=== PATIENT | female | born 1955 | race Caucasian/White ===

== ENCOUNTER 2016-10-09 16:37 | Inpatient (IN) | payer OTHER ==
--- NOTE | 2016-10-09 16:31 | US ---
Venous Doppler Study of right Lower Extremity Clinical Indications: Left leg swelling for 5 days. Technique: High-frequency transducer was used for imaging and Doppler study of the deep veins of the leg from the upper calf to the groin. Pulsed Doppler and color Doppler were utilized, along with va rious maneuvers, to assess flow in the deep veins. Findings: The deep veins of the groin, thigh, knee, and upper calf are well displayed and are noncom pressible without evidence of internal color flow Doppler enhancement compatible with extensive DVT. There also appears be thrombus associated with the greater saphenous vein in the thigh to the knee. Impression: 1. Evidence of DVT from the left distal external iliac vein through the calf as well as superficial t hrombus of the greater saphenous vein. These findings were discussed by telephone with Dr. Geraldo Macedo at 1628 hours.
--- NOTE | 2016-10-09 16:44 | EDPHY ---
H & P Time Seen by Provider: 10/09/16 16:43 HPI/ROS: Portions of this note were transcribed by a medical staff services manager. I personally performed the history, physical exam, and medical decision-making; and confirmed the accuracy of the information in the transcribed note. CHIEF COMPLAINT: Left leg pain, DVT confirmed on US HISTORY OF PRESENT ILLNESS: This patient is a 61 year old female who was referred to the Emergency Department by Dr. Macedo following an US of her lower left extremity indicating DVT. She has a history of one prior DVT in the mid- following an injury to her left leg and she was treated with Heparin in the hospital and 6 month course of Coumadin at that time. She has not had any recurrent blood clots since that time. Today, she describes her pain as diffuse to her left leg extending from her groin to her left calf. Her pain first presented on Saturday and associated with diffuse erythema to her LLE. She denies any additional pain, shortness of breath, fever, or other complaints. No additional pertinent medical history. REVIEW OF SYSTEMS: Eye: no change in vision ENT: no sore throat Cardiac: no chest pain or syncope Pulmonary: no cough or SOB Abdomen: no vomiting, diarrhea, abdominal pain Musculoskeletal: As above. Also: Left ankle swollen since February, ingrown toenail removed at that time. Intermittent swelling to left ankle since that time. Skin: no rash Neuro: no headache Constitutional: no fever : no urinary symptoms PAST MEDICAL HISTORY: One prior DVT in mid-. Previous venous procedure by Dr. Buchanan. Results of LLE Doppler Extremity Venous Ultrasound ordered by Dr. Macedo reviewed and indicate evidence of DVT from the left distal external iliac vein through the calf as well as superficial thrombus of the greater saphenous vein. Social history: at bedside. Non-smoker. Family history: Blood clots in mother. General Appearance: Alert and conversant, cooperative. Eyes: No scleral icterus. ENT, Mouth: Normal mucous membranes. Respiratory: Normal respiratory effort, breath sounds equal, lungs are clear to auscultation. Speaks in full sentences. Cardiovascular: Regular rate and rhythm. There is a pulse present in the left foot. Gastrointestinal: Abdomen is soft and non tender. Neurological: Alert and oriented x3. Normally conversant. Face symmetric, normal movement and sensation in all extremities. Skin: Slightly warm and red left leg. No blisters or crepitus. Musculoskeletal: Significant left leg swelling as compared to the right. Redness to the anterior dent. Compartments are soft, but significant swelling exists. Psychiatric: Not agitated. Emergency Department course/MDM: I discussed ultrasound results with the patient. Given the severity of the patient's swelling, plan to discuss results with Dr. Buchanan, interventional radiologist, to consider interventional radiology removal of DVT. Will proceed with labs to investigate kidney function. 1658: I discussed US results with Dr. Nathan Islas, radiologist. 1707: Dr. Lizy Buchanan, IR, will visit the patient in the Emergency Department. 1800: Per Dr. Buchanan from IR there are no ICU beds available tonight, plan for inpatient admission on IV heparin, interventional radiology as soon as ICU bed becomes available. The heparin bolus and drip started in the emergency department. Constitutional: Initial Vital Signs Temperature (C) 37.1 C 10/09/16 16:40 Heart Rate 106 H 10/09/16 16:40 Respiratory Rate 16 10/09/16 16:40 Blood Pressure 113/96 H 10/09/16 16:40 O2 Sat (%) 94 10/09/16 16:40 O2 Delivery Mode Room Air Allergies/Adverse Reactions: erythromycin base [Erythromycin Base] Allergy (Unknown, Verified 08/16/10 11:07) DISORIENTED/DYSFUNCTIONAL Home Medications: Medication Instructions Recorded Aspirin EC [Aspirin EC 81 mg (*)] 81 mg PO DAILY@20 10/09/16 Cholecalciferol Vit D3 [Vitamin D3 2,000 units PO DAILY@20 10/09/16 (*)] Levothyroxine [Synthroid 88 mcg 88 mcg PO DAILY06 10/09/16 (*)] [place]-3 Fatty Acids [Fish Oil 1000 1,000 mg PO DAILY 10/09/16 mg (*)] Omeprazole [Prilosec 20 mg] 20 mg PO DAILY@10/09/16 Vitamin E 200 unit PO DAILY@10/09/16 Medical Decision Making Differential Diagnosis: Differential considered including but not limited to DVT, arterial occlusion, cellulitis, compartment syndrome Consult/Admit Bed Type: Dr. Buchanan in ED at 1749, saw pt; [place] [id number] Critical Care Time: Critical care time spent by me, Dr. Law, exclusively with the care of this patient was [30] minutes, exclusive of PA or [employer] time and exclusive of separate procedures. The organ system at risk was vascular and I ordered IV heparin, consultation with interventional radiologist and hospitalist physician, to stabilize the patient and prevent worsening of the patient's condition. - Data Points Laboratory Results: Laboratory Results 10/09/16 17:14 16 17:14 10/09/16 17:14 WBC 10.00 H 10^3/uL (3.80-9.50) RBC 4.54 10^6/uL (4.18-5.33) Hgb 13.3 g/dL (12.6-16.3) Hct 39.8 % (38.0-47.0) MCV 87.7 fL (81.5-99.8) MCH 29.3 pg (27.9-34.1) MCHC 33.4 g/dL (32.4-36.7) RDW 14.0 % (11.5-15.2) Plt Count 135 L 10^3/uL (150-400) MPV 9.5 fL (8.7-11.7) Neut % (Auto) 69.7 % (39.3-74.2) Lymph % (Auto) 17.1 % (15.0-45.0) [place] % (Auto) 8.0 % (4.5-13.0) Eos % (Auto) 4.2 % (0.6-7.6) Baso % (Auto) 0.5 % (0.3-1.7) Nucleat RBC Rel Count 0.0 % (0.0-0.2) Absolute Neuts (auto) 6.97 H 10^3/uL (1.70-6.50) Absolute Lymphs (auto) 1.71 10^3/uL (1.00-3.00) Absolute Monos (auto) 0.80 10^3/uL (0.30-0.80) Absolute Eos (auto) 0.42 H 10^3/uL (0.03-0.40) Absolute Basos (auto) 0.05 10^3/uL (0.02-0.10) Absolute Nucleated RBC 0.00 10^3/uL (0-0.01) Immature Gran % 0.5 % (0.0-1.1) Immature Gran # 0.05 10^3/uL (0.00-0.10) PT 13.3 SEC (12.0-15.0) INR 1.02 (0.83-1.16) APTT 26.5 SEC (23.0-38.0) Sodium 143 mEq/L (134-144) Potassium 4.2 mEq/L (3.5-5.2) Chloride 109 mEq/L (97-110) Carbon Dioxide 25 mEq/l (22-31) Anion Gap 9 mEq/L (8-16) BUN 17 mg/dL (7-23) Creatinine 0.8 mg/dL (0.6-1.0) Estimated GFR > 60 Glucose 111 H mg/dL (70-100) Calcium 9.4 mg/dL (8.5-10.4) Medications Given: Discontinued Medications Heparin Sodium (Porcine) (Heparin Injection) 0 unit IVP EDNOW ONE PRN Reason: Protocol Stop: 10/09/16 17:59 Last Admin: 10/09/16 18:19 Dose: 6,200 units Heparin Sodium (Porcine) (Heparin 50 Units/Ml (Premix)) 500 mls @ 0 mls/hr IV EDNOW ONE; Per Protocol PRN Reason: Protocol Stop: 10/09/16 17:59 Last Admin: 10/09/16 18:19 Dose: 500 mls Departure - Departure Disposition: [facility] Acute Clinical Impression: DVT (deep venous thrombosis) Qualifiers: DVT location: lower extremity Affected thrombotic vein of extremity: iliac Laterality: left Chronicity: acute Qualifier Code: (I82.422) Acute embolism and thrombosis of left iliac vein Condition: Good Report Scribed for: Dean Law Report Scribed by: Kenna Sears Date of Report: 10/09/16 Time of Report: 17:03
[2016-10-09 17:30] LABS: % IMMATURE GRANULYOCYTES 0.5 % (0.0-1.1); ABSOLUTE IMMATURE GRANULOCYTES 0.05 10^3/uL (0.00-0.10); ADD DIFF? NO; ADD MORPH? NO; ADD SCAN? NO; ATYPICAL LYMPHOCYTE FLAG 0 (0-99); FRAGMENT RBC FLAG 0 (0-99); HEMATOCRIT 39.8 % (38.0-47.0); HEMOGLOBIN 13.3 g/dL (12.6-16.3); LEFT SHIFT FLG 0 (0-99); LIPEMIA HEMOLYSIS FLAG 80 (0-99); MEAN CELL HEMOGLOBIN 29.3 pg (27.9-34.1); MEAN CELL HEMOGLOBIN CONCENTR. 33.4 g/dL (32.4-36.7); MEAN CELL VOLUME 87.7 fL (81.5-99.8); MEAN PLATELET VOLUME 9.5 fL (8.7-11.7); PLATELET CLUMPS FLAG 10 (0-99); PLATELET COUNT 135 10^3/uL (150-400); RED BLOOD CELL COUNT 4.54 10^6/uL (4.18-5.33)
[2016-10-09 17:34] LABS: INR 1.02 (0.83-1.16); PROTIME(PATIENT) 13.3 SEC (12.0-15.0)
[2016-10-09 17:35] LABS: APTT 26.5 SEC (23.0-38.0)
[2016-10-09 17:40] LABS: ANION GAP 9 mEq/L (8-16); CALCIUM 9.4 mg/dL (8.5-10.4); CARBON DIOXIDE 25 mEq/l (22-31); CHLORIDE 109 mEq/L (97-110); CREATININE 0.8 mg/dL (0.6-1.0); GLOMERULAR FILTRATION RATE > 60; GLUCOSE 111 mg/dL (70-100); POTASSIUM 4.2 mEq/L (3.5-5.2); SODIUM 143 mEq/L (134-144)
[2016-10-09] MEDS ORDERED: HEPARIN/DEXTROSE 500 ML IV ONE (17:58)
[2016-10-09] MEDS ORDERED: HEPARIN 10,000 UNIT/10 ML MDV IVP ONE (17:58)
[2016-10-09] MEDS ORDERED: ONDANSETRON DISINTEGRATING 4 MG TAB PO PRN (19:25)
[2016-10-09] MEDS ORDERED: PROMETHAZINE HCL 25 MG/ML VIAL IVP PRN (19:25)
[2016-10-09] MEDS ORDERED: ONDANSETRON 4 MG/2 ML VIAL IVP PRN (19:25)
[2016-10-09] MEDS ORDERED: LORazepam 0.5 MG TAB PO PRN (19:25)
[2016-10-09] MEDS ORDERED: HEPARIN 10,000 UNIT/10 ML MDV IVP PRN (19:27)
[2016-10-09] MEDS ORDERED: HEPARIN/DEXTROSE 500 ML IV SCH (19:30)
--- NOTE | 2016-10-09 22:33 | PDGENHP ---
History and Physical - Chief Complaint left leg swellind and pain - History of Present Illness 61 yo F with PMH of HLD and DVT presenting with swelling and pain in her left lower extremity that has been present for about 4 days. She has a hx of prior DVT in that leg many years ago and was treated with 6 months of AC. At this time her leg is noted to be very tight and red and swollen and she has been evaluated by Dr. Buchanan in the ER who felt that she should be treated with lysis with concerns that her current venous stasis cellulitis would likely worsen and that she would be high risk for ulceration in that area. Currently patient notes that the pain is actually fairly minimal so long as she has the leg elevated. She has no associated chest pain or shortness of breath etc. History Information - Allergies/Home Medication List Allergies/Adverse Reactions: erythromycin base [Erythromycin Base] Allergy (Unknown, Verified 08/16/10 11:07) DISORIENTED/DYSFUNCTIONAL Home Medications: Aspirin EC [Aspirin EC 81 mg (*)] 81 mg PO DAILY@10/09/16 [Last Taken ] Cholecalciferol Vit D3 [Vitamin D3 (*)] 2,000 units PO DAILY@10/09/16 [Last Taken 10/08/16] Levothyroxine [Synthroid 88 mcg (*)] 88 mcg PO DAILY06 10/09/16 [Last Taken ] [place]-3 Fatty Acids [Fish Oil 1000 mg (*)] 1,000 mg PO DAILY 10/09/16 [Last Taken 10/08/16] Omeprazole [Prilosec 20 mg] 20 mg PO DAILY@10/09/16 [Last Taken 10/08/16] Vitamin E 200 unit PO DAILY@10/09/16 [Last Taken 10/08/16] I have personally reviewed and updated: family history, medical history, social history, surgical history - Past Medical History DVT, hyperlipidemia Additional medical history: hypothryoid. thyroid nodule - Surgical History Reports: hysterectomy Additional surgical history: tonsillectomy. tubal ligation. venous ablatoin - Family History Positive for: non-pertinent - Social History Smoking Status: Never smoked Alcohol Use: Rarely Drug Use: None Additional social history: 3 children all grown Review of Systems ROS: 10pt was reviewed & negative except for what was stated in HPI & below Physical Exam Temp Pulse Resp BP Pulse Ox 37.5 C 103 H 18 164/86 H 95 10/09/16 19:15 10/09/16 19:15 10/09/16 19:15 10/09/16 19:15 10/09/16 19:15 Constitutional: no apparent distress, appears nourished, obese Eyes: PERRL Ears, Nose, Mouth, Throat: moist mucous membranes, hearing normal Cardiovascular: regular rate and rhythym, no murmur, rub, or gallop Respiratory: no respiratory distress, no rales or rhonchi Gastrointestinal: normoactive bowel sounds, soft, non-tender abdomen Skin: warm, erythema, induration Musculoskeletal: asymmetric calves, muscular tenderness Neurologic: AAOx3 Psychiatric: interacting appropriately, not anxious, not encephalopathic Lab Data & Imaging Review 10/09/16 17:14 10/09/16 17:14 WBC 10.00 10^3/uL (3.80-9.50) H 10/09/16 17:14 RBC 4.54 10^6/uL (4.18-5.33) 10/09/16 17:14 Hgb 13.3 g/dL (12.6-16.3) 10/09/16 17:14 Hct 39.8 % (38.0-47.0) 10/09/16 17:14 MCV 87.7 fL (81.5-99.8) 10/09/16 17:14 MCH 29.3 pg (27.9-34.1) 10/09/16 17:14 MCHC 33.4 g/dL (32.4-36.7) 10/09/16 17:14 RDW 14.0 % (11.5-15.2) 10/09/16 17:14 Plt Count 135 10^3/uL (150-400) L 10/09/16 17:14 MPV 9.5 fL (8.7-11.7) 10/09/16 17:14 Neut % (Auto) 69.7 % (39.3-74.2) 10/09/16 17:14 Lymph % (Auto) 17.1 % (15.0-45.0) 10/09/16 17:14 [place] % (Auto) 8.0 % (4.5-13.0) 10/09/16 17:14 Eos % (Auto) 4.2 % (0.6-7.6) 10/09/16 17:14 Baso % (Auto) 0.5 % (0.3-1.7) 10/09/16 17:14 Nucleat RBC Rel Count 0.0 % (0.0-0.2) 10/09/16 17:14 Absolute Neuts (auto) 6.97 10^3/uL (1.70-6.50) H 10/09/16 17:14 Absolute Lymphs (auto) 1.71 10^3/uL (1.00-3.00) 10/09/16 17:14 Absolute Monos (auto) 0.80 10^3/uL (0.30-0.80) 10/09/16 17:14 Absolute Eos (auto) 0.42 10^3/uL (0.03-0.40) H 10/09/16 17:14 Absolute Basos (auto) 0.05 10^3/uL (0.02-0.10) 10/09/16 17:14 Absolute Nucleated RBC 0.00 10^3/uL (0-0.01) 10/09/16 17:14 Immature Gran % 0.5 % (0.0-1.1) 10/09/16 17:14 Immature Gran # 0.05 10^3/uL (0.00-0.10) 10/09/16 17:14 PT 13.3 SEC (12.0-15.0) 10/09/16 17:14 INR 1.02 (0.83-1.16) 10/09/16 17:14 APTT 26.5 SEC (23.0-38.0) 10/09/16 17:14 Sodium 143 mEq/L (134-144) 10/09/16 17:14 Potassium 4.2 mEq/L (3.5-5.2) 10/09/16 17:14 Chloride 109 mEq/L (97-110) 10/09/16 17:14 Carbon Dioxide 25 mEq/l (22-31) 10/09/16 17:14 Anion Gap 9 mEq/L (8-16) 10/09/16 17:14 BUN 17 mg/dL (7-23) 10/09/16 17:14 Creatinine 0.8 mg/dL (0.6-1.0) 10/09/16 17:14 Estimated GFR > 60 10/09/16 17:14 Glucose 111 mg/dL (70-100) H 10/09/16 17:14 Calcium 9.4 mg/dL (8.5-10.4) 10/09/16 17:14 Visualized and Interpreted imaging results: Yes Interpretation: dvt from distal left external iliac through the calf Assessment & Plan Assessment: DVT (deep venous thrombosis) (Acute) 61 yo F with 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 High risk for complications associated with venous stasis and venous stasis dermatitis so plan is for lysis in am. IR involved, reviewed care plan with Dr. Buchanan. Heparin gtt tonight, tpa in am and transfer to ICU at that time for monitoring. # venous stasis dermatitis: without e/o cellulitis really at this point, tx as above, elevation, monitoring # hld: recently taken off of statins by her pcp, continue f/u # hypothyroid: continue lt4 # dispo: IP status, high risk given need for TPA Patient new to my care. old records reviewed and summarized as above. Care plan reviewed with Dr. Buchanan.
[2016-10-09] MEDS: oxyCODONE IR 5 MG TAB PO PRN (23:02)
[2016-10-09] MEDS: NS 1,000 ML IV SCH (23:45)
[2016-10-10] MEDS: HYDROmorphONE/DILAUDID 1 MG/ML SYR IVP PRN ×2 (03:10→18:03)
[2016-10-10] MEDS: oxyCODONE IR 5 MG TAB PO PRN ×2 (03:10→21:57)
[2016-10-10] MEDS: LEVOTHYROXINE 88 MCG TAB PO SCH (05:30)
[2016-10-10 06:04] LABS: % IMMATURE GRANULYOCYTES 0.4 % (0.0-1.1); ABSOLUTE IMMATURE GRANULOCYTES 0.04 10^3/uL (0.00-0.10); ADD DIFF? NO; ADD MORPH? NO; ADD SCAN? NO; ATYPICAL LYMPHOCYTE FLAG 0 (0-99); FRAGMENT RBC FLAG 0 (0-99); HEMATOCRIT 37.1 % (38.0-47.0); HEMOGLOBIN 12.1 g/dL (12.6-16.3); LEFT SHIFT FLG 0 (0-99); LIPEMIA HEMOLYSIS FLAG 80 (0-99); MEAN CELL HEMOGLOBIN CONCENTR. 32.6 g/dL (32.4-36.7); MEAN PLATELET VOLUME 9.7 fL (8.7-11.7); PLATELET CLUMPS FLAG 30 (0-99); PLATELET COUNT 134 10^3/uL (150-400); RED BLOOD CELL COUNT 4.17 10^6/uL (4.18-5.33); RED CELL DISTRIBUTION WIDTH 14.1 % (11.5-15.2)
[2016-10-10 06:47] LABS: ANION GAP 8 mEq/L (8-16); CALCIUM 8.6 mg/dL (8.5-10.4); CARBON DIOXIDE 23 mEq/l (22-31); CHLORIDE 109 mEq/L (97-110); CREATININE 0.7 mg/dL (0.6-1.0); GLOMERULAR FILTRATION RATE > 60; GLUCOSE 122 mg/dL (70-100); POTASSIUM 3.9 mEq/L (3.5-5.2); SODIUM 140 mEq/L (134-144)
[2016-10-10] MEDS: OMEGA-3 FATTY ACIDS 1,000 MG CAP PO SCH (09:32)
--- NOTE | 2016-10-10 14:18 | HOSPPROG ---
Hospitalist Progress Note Assessment/Plan: 61 yo F with recurrent dvt in left leg, extensive, with likely underlying May- thurner syndrome an history of factor 5 Leiden mutation per patient # extensive left lower extremity dvt - continue heparin drip - plan for interventional radiology thrombolysis later today # venous stasis dermatitis - tx as above, elevation, monitoring # hyperlipidemia -recently taken off of statins by her pcp, continue f/u # hypothyroid: continue lt4 # dispo: IP status, high risk given need for TPA Patient new to my care. old records reviewed and summarized as above. Care plan reviewed with Dr. Buchanan. Subjective: denies chest pain or shortness of breath. Left leg continues to be swollen. No fevers or chills Objective: Vital Signs Temp Pulse Resp BP Pulse Ox 37.1 C 105 H 18 152/96 H 95 10/10/16 11:59 10/10/16 11:59 10/10/16 11:59 10/10/16 11:59 10/10/16 11:59 Laboratory Results 10/10/16 05:50 10/10/16 05:50 10/09/16 10/10/16 10/11/16 05:59 05:59 05:59 Intake Total 919 Balance 919 PT 13.3 SEC (12.0-15.0) 10/09/16 17:14 INR 1.02 (0.83-1.16) 10/09/16 17:14 - Physical Exam Constitutional: no apparent distress, appears nourished, not in pain Ears, Nose, Mouth, Throat: moist mucous membranes, hearing normal, ears appear normal, no oral mucosal ulcers Cardiovascular: regular rate and rhythym, no murmur, rub, or gallop Respiratory: no respiratory distress, no rales or rhonchi, clear to auscultation Musculoskeletal: other ( left ankle and lower leg her edematous without pitting edema other signs of stasis dermatitis) ICD10 Worksheet Patient Problems: Problems Problem Status Diagnosed DVT (deep venous thrombosis) Acute
[2016-10-10] MEDS ORDERED: fentaNYL 100 MCG/2 ML INJ ONE ×2 (15:37→16:24)
[2016-10-10] MEDS ORDERED: MIDAZOLAM 2 MG/2 ML VIAL ONE (15:37)
[2016-10-10] MEDS ORDERED: IOPAMIDOL (ISOVUE-300) 100 ML BTL IV ONE (16:26)
[2016-10-10] MEDS ORDERED: ALTEPLASE 5 MG in NS 100 ML IVP ONE (16:30)
[2016-10-10] MEDS ORDERED: HEPARIN/DEXTROSE 500 ML IV SCH (17:00)
--- NOTE | 2016-10-10 19:30 | IR ---
Left lower extremity venogram TPA lysis Indication: Extensive left lower extremity DVT. Patient had varicose veins treated in 2009 with sub sequent resolution of varicose vein related issues and swelling. Three years ago, the patient started an area of cellulitis at the anterior dent in the left lower leg. This has been growing. She present ed to the Emergency Department last night with acute onset of severe left lower extremity swelling. U ltrasound confirms extensive left lower extremity DVT. My suspicion is that the patient has May-Thurner syndrome, with continued ongoing compression of the iliac vein, now causing complete thrombosis. Meanwhile over the course of the last 7 years, she has b een accumulating venous hypertension from the deep system, thereby now developing anterior dent venou s stasis cellulitis. The above were all discussed with the patient, who understood the implications of post thrombophlebit ic syndrome in her particular case. I think the patient has a very high risk of developing ulceration at the current area of cellulitis from venous hypertension if the existing clot is not treated aggre ssively. Patient was heparinized overnight with intention for lysis today. Her leg is significantly tense. Informed consent: Obtained from the patient. Risks and benefits were discussed. Crosscutting Measure: Patient's current list of medications including all known prescriptions, over- the-counters, herbals, and vitamin/mineral/dietary supplements are reviewed. Medications' name, dosa ge, frequency, and route of administration are confirmed. patient is a non-smoker. Prophylactic Antibiotic: Cefazolin was not ordered and administered for antimicrobial prophylaxis be cause it was not medically necessary. VTE Prophylaxis: There is not an order for VTE prophylaxis to be given within 24 hours of the proced ure end time. VTE prophylaxis was not given because it was not medically necessary. Technique: Patient was placed in prone position. A "timeout" procedure was performed to identify th e correct patient and the correct procedure. 1% Xylocaine was used for local anesthetic. All eleme nts of maximal sterile barrier technique including cap, mask, sterile gown, sterile gloves, large guillermo rile sheet, hand hygiene, and 2% chlorhexidine for cutaneous antisepsis, followed. Ultrasound evaluation of potential access site was performed. After successfully identifying a patent vessel, ultrasound guidance was used to puncture the vessel. A permanent recording was created for t he patient's record. When ultrasound is used, sterile gel and probe covers are used. It was very difficult to access the popliteal vein at the popliteal fossa because of body habitus and degree of tissue density from the swelling and clotting. I essentially used deflection of the needle to access the popliteal vein without direct visualization of the needle tip. I was able to get into the popliteal vein, with rapid return of blood that is from collaterals. [place] wire advanced readily. This was followed by Micropuncture sheath. Venogram performed shows intra luminal access of the popliteal vein and a large amount of fresh clot in the popliteal vein and SFV. Glidewire and [place] catheter access for the remainder of the SFV, common femoral vein, and subsequent iliac veins were obtained. Continued venogram was performed, showing thrombosis of the entire segmen t of these veins. Venogram performed centrally shows paraspinal collaterals, and no direct in-line flow to IVC. 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 Using the [place] catheter and the Glidewire, I was able to access the small residual lumen, subsequently placing the combination into t he IVC. Contrast injection confirms satisfactory placement of the catheter in the IVC. Intraluminal access was confirmed by multiple venograms, and multiple readjustments of the wire and c atheter combination. [place] power jet thrombectomy was first performed throughout the entire segment from the IVC down to the popliteal access. This was done to remove some volume in her venous system given the amount of te nseness of her tissue. I was concerned that with overnight dripping of TPA, that the patient will be at risk of phlegmasia cerulea dolens syndrome. After mechanical thrombectomy, 50 cm EKOS infusion catheter was advanced, and subsequently attached t o TPA. Medication: 2.5 mg Versed, 150 mcg fentanyl, 1540 to 1645 hours. Fluoroscopy: 8.1 minutes, 18 images Impression: 1. May-Thurner syndrome with complete closure of the iliac vein proximally. 2. Extensive acute DVT throughout the left lower leg. 3. The patch of erythema at the anterior dent in the lower leg that has been progressing over the las t several years most likely represents venous stasis cellulitis from ongoing deep system venous hyper tension. Plan: 1. Overnight TPA lysis. 2. Anticipate stent placement tomorrow.
[2016-10-10] MEDS: PANTOPRAZOLE SODIUM 40 MG TAB PO SCH (19:45)
[2016-10-10] MEDS: LORazepam 1 MG TAB PO PRN (19:45)
[2016-10-10] MEDS: CHOLECALCIFEROL VIT D3 2,000 UNITS TAB/CAP PO SCH (19:45)
[2016-10-10] MEDS: VITAMIN E 200 UNIT PO SCH (19:45)
[2016-10-10] MEDS: ACETAMINOPHEN 325 MG TAB PO PRN (19:50)
[2016-10-10] MEDS: NS 1,000 ML IV SCH (20:46)
[2016-10-10] MEDS: ALTEPLASE 5 MG in NS 100 ML IV SCH (20:47)
[2016-10-11] MEDS: oxyCODONE IR 5 MG TAB PO PRN ×3 (01:16→23:15)
[2016-10-11 05:01] LABS: % IMMATURE GRANULYOCYTES 0.4 % (0.0-1.1); ABSOLUTE IMMATURE GRANULOCYTES 0.04 10^3/uL (0.00-0.10); ADD DIFF? NO; ADD MORPH? NO; ADD SCAN? NO; ATYPICAL LYMPHOCYTE FLAG 10 (0-99); FRAGMENT RBC FLAG 0 (0-99); HEMATOCRIT 34.4 % (38.0-47.0); LEFT SHIFT FLG 0 (0-99); LIPEMIA HEMOLYSIS FLAG 80 (0-99); MEAN CELL HEMOGLOBIN 28.6 pg (27.9-34.1); MEAN CELL VOLUME 89.4 fL (81.5-99.8); MEAN PLATELET VOLUME 9.8 fL (8.7-11.7); PLATELET CLUMPS FLAG 0 (0-99); PLATELET COUNT 137 10^3/uL (150-400); RED BLOOD CELL COUNT 3.85 10^6/uL (4.18-5.33); RED CELL DISTRIBUTION WIDTH 13.8 % (11.5-15.2)
[2016-10-11] MEDS: ALTEPLASE 5 MG in NS 100 ML IV SCH ×3 (05:09→20:11)
[2016-10-11 05:18] LABS: APTT 27.7 SEC (23.0-38.0)
[2016-10-11] MEDS: LEVOTHYROXINE 88 MCG TAB PO SCH (06:09)
[2016-10-11] MEDS: NS 1,000 ML IV SCH (06:43)
[2016-10-11] MEDS: OMEGA-3 FATTY ACIDS 1,000 MG CAP PO SCH (09:20)
--- NOTE | 2016-10-11 09:27 | HOSPPROG ---
Hospitalist Progress Note Assessment/Plan: #Extensive LLE DVT -s/p t-pA and stent placement -family to discuss coumadin vs. newer agent -given underlying May-Thurner and prior clot, needs lifelong anticoagulation #Venous stasis dermatitis -no e/o acute cellulitis -elevate #Acute leg pain: controlled #Hypothyroidism -LT4 #Diet: regular #DVT px: on heparin #Disp: warrants inpt admission with large clot burden, IV heparin Subjective: pain in left leg controlled Objective: Vital Signs Temp Pulse Resp BP Pulse Ox 37 C 108 H 24 H 135/66 H 92 10/11/16 07:56 10/11/16 07:56 10/11/16 07:56 10/11/16 07:56 10/11/16 07:56 Laboratory Results 10/11/16 04:44 10/10/16 05:50 10/10/16 10/11/16 10/12/16 05:59 05:59 05:59 Intake Total 919 1901.3 Output Total 625 Balance 919 1276.3 PT 13.3 SEC (12.0-15.0) 10/09/16 17:14 INR 1.02 (0.83-1.16) 10/09/16 17:14 - Physical Exam Constitutional: obese, uncomfortable Eyes: PERRL, anicteric sclera Ears, Nose, Mouth, Throat: moist mucous membranes, hearing normal Cardiovascular: regular rate and rhythym, no murmur, rub, or gallop Respiratory: no respiratory distress, no rales or rhonchi Gastrointestinal: normoactive bowel sounds, soft, non-tender abdomen Genitourinary: no bladder fullness, no bladder tenderness Skin: warm, other Musculoskeletal: other (left leg with very significant swelling. TTP) ICD10 Worksheet Patient Problems: Problems Problem Status Diagnosed DVT (deep venous thrombosis) Acute
[2016-10-11 10:34] LABS: HEMATOCRIT 34.2 % (38.0-47.0); HEMOGLOBIN 11.3 g/dL (12.6-16.3); MEAN CELL HEMOGLOBIN 29.4 pg (27.9-34.1); MEAN CELL VOLUME 88.8 fL (81.5-99.8); RED BLOOD CELL COUNT 3.85 10^6/uL (4.18-5.33)
[2016-10-11] MEDS ORDERED: MIDAZOLAM 2 MG/2 ML VIAL ONE ×2 (10:51→11:53)
[2016-10-11] MEDS ORDERED: fentaNYL 100 MCG/2 ML INJ ONE ×2 (10:52→11:53)
[2016-10-11] MEDS ORDERED: IOPAMIDOL (ISOVUE-300) 100 ML BTL IV ONE (11:38)
--- NOTE | 2016-10-11 14:18 | GCON ---
[f rep st] CONSULTATION CRITICAL CARE CONSULTATION DATE OF CONSULTATION: 10/11/2016 REFERRING PHYSICIAN: Leonel Bill MD CHIEF COMPLAINT: Left leg pain and swelling. HISTORY OF PRESENT ILLNESS: This 61-year-old female had about a 4-day history of left lower extremit y pain and swelling prior to coming into the hospital. She was diagnosed with a very large volume DV T and has had interventional radiology with Dr. Buchanan, and topical lysis with tPA. The redness of the skin is better and the swelling is slightly better, but still quite prominent. The leg feels tight t o the patient. 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 She has not had any chest pain or shortness of breath. Significantly, the patient h ad a DVT in her left lower extremity many years ago after an injury playing baseball. She was treate d with Coumadin for approximately 6 months at that point. Also, the patient has heterozygous factor 5 Leiden deficiency. PAST MEDICAL HISTORY: 1. DVT as noted above with May-Thurner syndrome. 2. Hyperlipidemia. 3. Factor 5 Leiden heterozygous. 4. Corrected hypothyroidism. SURGICAL HISTORY: Hysterectomy, tonsillectomy, tubal ligation, and venous ablation. FAMILY HISTORY: Without diabetes mellitus or early arteriosclerotic vascular disease. SOCIAL HISTORY: She has never smoked tobacco or used illicit drugs, and rarely drinks alcohol. She lives with her and has 3 grown children. Her sister has heterozygous factor 5 Leiden, as tanner starks. Their mother had quite a few blood clots. REVIEW OF SYSTEMS: Otherwise noncontributory, except as included above x10 points. PHYSICAL EXAMINATION: GENERAL: The patient is comfortable. VITAL SIGNS: Blood pressure 141/73, pu lse 102, respiratory rate of 20, oxygen saturation 97% on 2 L, and she is afebrile. SKIN: Normal. HEAD: Without evidence of trauma. EYES: PERRL. External ocular movements full. Fundi not visualiz ed. EARS: Canals clear. NOSE: Without septal deviation or polyps. MOUTH AND PHARYNX: Clear with out lesions. NECK: Supple without adenopathy. No jugular venous distention. CHEST: Decreased scarlet ath sounds, but no rales, wheezes, rhonchi, or rubs. HEART: PMI is not palpable. S1 and S2 are nor mal. There is no S3, S4, or murmur. ABDOMEN: Obese without organomegaly or masses. There is no te nderness and bowel sounds are present. EXTREMITIES: Full range of motion of the arms and right leg without clubbing, cyanosis, or edema. The left lower extremity is quite edematous. There is no real erythema present. It is not really tender at this point. DATA REVIEWED: The ultrasound of the leg showed extensive deep vein thrombosis and venogram showed M ay-Thurner syndrome with near-complete closure of the iliac vein proximally. A stent has been placed in the iliac vein. The white blood count is 10,560 with a hematocrit of 34. Chemistry is normal. IMPRESSION: 1. Extensive deep venous thrombosis of the left lower extremity and this is her second episode, stat us post stent placement and tissue plasmogen activator lysis. 2. May-Thurner syndrome of the left iliac vein. 3. Heterozygous factor 5 Leiden. PLAN: I spent considerable time talking to the patient and her about the options of Coumadin versus 1 of the newer anticoagulants. I believe they will choose a newer agent. I have also spent time saying that they need to be very careful while she is on anticoagulation as far as falling and h itting her head, or having other bleeding. I believe this patient, with her previous history of a DV T and May-Thurner syndrome with a stent, should be on lifelong anticoagulation. /[id number]/MODL
[2016-10-11 17:54] LABS: APTT 153.1 SEC (23.0-38.0)
[2016-10-11 18:21] LABS: APTT 70.6 SEC (23.0-38.0)
[2016-10-11] MEDS: VITAMIN E 200 UNIT PO SCH (20:48)
[2016-10-11] MEDS: CHOLECALCIFEROL VIT D3 2,000 UNITS TAB/CAP PO SCH (20:53)
[2016-10-11] MEDS: PANTOPRAZOLE SODIUM 40 MG TAB PO SCH (20:53)
--- NOTE | 2016-10-11 22:46 | IR ---
Lysis Follow-up Venography Iliac Vein Angioplasty Common Iliac Vein Stent Placement Indication: May-Thurner syndrome. Post 24-hour TPA lysis. The patient's fibrinogen actually went u p. PTT has been below 30. The patient has tolerated the overall bedridden status fairly well. Informed Consent: Obtained from the patient. Risks and benefits were discussed. Cross Cutting Measure: Patient's current list of medications including all known prescriptions, over -the-counters, herbals, and vitamin/mineral/dietary supplements are reviewed. Medications' name, dos age, frequency, and route of administration are confirmed. Patient is a non-smoker. Prophylactic Antibiotic: Cefazolin was not ordered and administered for antimicrobial prophylaxis be cause it was not medically necessary. VTE Prophylaxis: There is not an order for VTE prophylaxis to be given within 24 hours of the proced ure end time. VTE prophylaxis was not given because it was not medically necessary. Technique: Patient is placed in prone position. A "timeout" procedure was performed to identify the correct patient and the correct procedure. 1% Xylocaine was used for local anesthetic. All element s of maximal sterile barrier technique, including cap, mask, sterile gown, sterile gloves, large ster ile sheet, hand hygiene, and 2% chlorhexidine for cutaneous antisepsis, followed. Popliteal access site is anesthetized. Amplatz wire is used to remove the infusion catheter. Venogr am is performed, showing a good amount of clot removed from the femoral vein and the superficial femo ral vein, however, with significant irregularity and clot remaining in the external iliac and common iliac segment. It is unclear at what point the catheter is subintimal. The short vascular sheath is exchanged for a 55-cm long vascular sheath, 8-Luxembourgish. It is positioned at the common femoral vein. Power injection venogram shows collateral flow, and delineates true lume n into the IVC. This lumen was then accessed using a combination of Glidecatheter and Amplatz wire. Angioplasty is p erformed along the external iliac and common femoral segments. A 14-mm diameter x 60-mm length LifeStent was loaded, and deployed at the junction of the IVC and the left common iliac vein. The proximal markers of the stent immediately flared out, confirming that t he stent traverses across the May-Thurner stenosis. Distally, it also flared out, with the mid segme nt going through high stricture. Angioplasty within the stent is performed using a 14-mm balloon. Post stent deployment venogram show s continued clot in the stented segment, and also extending into the IVC. Nonetheless, there is bett er antegrade flow. There continues to be irregularity in the external iliac segment. Decision was then made to continue TPA. 40-cm EKOS infusion catheter was loaded, distally terminatin g at distal thigh, proximally terminating above the stent in the IVC. Both the sidearm of the sheath as well as the infusion catheter are attached to 0.5 mg/hr of TPA. 30 0 units of heparin per hour is administered via peripheral IV. The patient tolerated the procedure w ell. Fluoroscopy: 13.2 minutes, 22 images. Medication: 2 mg Versed, 100 mcg fentanyl, 1105 to 1158. Impressions 1. Good clearance of clot in the femoral and common femoral vein segments. 2. Irregularity and chronic stricture at the external iliac vein and common iliac vein, consistent w ith May-Thurner syndrome. 3. A 14- x 60-mm self-expanding stent deployed at the common iliac vein, repairing May-Thurner physi ology. 4. Angioplasty performed at the external and common femoral veins to facilitate dissolution of clot. Plan: Continued TPA lysis overnight. Additional stent extension into the external iliac vein may be needed tomorrow.
[2016-10-11 23:53] LABS: APTT 56.9 SEC (23.0-38.0)
[2016-10-12] MEDS: NS 1,000 ML IV SCH (03:26)
[2016-10-12 04:51] LABS: HEMATOCRIT 31.9 % (38.0-47.0); HEMOGLOBIN 10.7 g/dL (12.6-16.3); MEAN CELL HEMOGLOBIN 29.6 pg (27.9-34.1); MEAN CELL HEMOGLOBIN CONCENTR. 33.5 g/dL (32.4-36.7); MEAN CELL VOLUME 88.1 fL (81.5-99.8); RED BLOOD CELL COUNT 3.62 10^6/uL (4.18-5.33)
[2016-10-12 05:03] LABS: APTT 43.4 SEC (23.0-38.0)
[2016-10-12 05:04] LABS: ANION GAP 3 mEq/L (8-16); CALCIUM 7.1 mg/dL (8.5-10.4); CARBON DIOXIDE 27 mEq/l (22-31); CHLORIDE 109 mEq/L (97-110); CREATININE 0.8 mg/dL (0.6-1.0); GLOMERULAR FILTRATION RATE > 60; GLUCOSE 111 mg/dL (70-100); POTASSIUM 3.2 mEq/L (3.5-5.2); SODIUM 139 mEq/L (134-144)
[2016-10-12] MEDS: LEVOTHYROXINE 88 MCG TAB PO SCH (07:07)
[2016-10-12] MEDS ORDERED: POTASSIUM CL 20 MEQ TAB PO ONE (08:24)
--- NOTE | 2016-10-12 08:25 | HOSPPROG ---
Hospitalist Progress Note Assessment/Plan: #Extensive LLE DVT -s/p t-pA and stent placement -family to discuss coumadin vs. newer agent -given underlying May-Thurner and prior clot, needs lifelong anticoagulation -she has agreed to Pradaxa BID. 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 #Venous stasis dermatitis -no e/o acute cellulitis -elevate #Acute leg pain: controlled #Hypothyroidism -LT4 #Diet: regular #DVT px: Pradaxa #Disp: warrants inpt admission with large clot burden, Pradaxa, PT Subjective: leg feels less tense Objective: Vital Signs Temp Pulse Resp BP Pulse Ox 36.5 C 97 18 137/62 H 92 10/12/16 07:54 10/12/16 07:54 10/12/16 07:54 10/12/16 07:54 10/12/16 07:54 Laboratory Results 10/12/16 04:30 10/12/16 04:30 10/11/16 10/12/16 10/13/16 05:59 05:59 05:59 Intake Total 1901.3 4054 Output Total 625 1400 Balance 1276.3 2654 PT 13.3 SEC (12.0-15.0) 10/09/16 17:14 INR 1.02 (0.83-1.16) 10/09/16 17:14 - Physical Exam Constitutional: no apparent distress Eyes: PERRL Ears, Nose, Mouth, Throat: moist mucous membranes Cardiovascular: regular rate and rhythym Respiratory: no respiratory distress, reduced air movement Genitourinary: no bladder fullness Skin: warm, other (dermatitis skin changes LEs, no signs of ) Musculoskeletal: other (left leg with significant swelling still, but less tense ) ICD10 Worksheet Patient Problems: Problems Problem Status Diagnosed DVT (deep venous thrombosis) Acute
[2016-10-12] MEDS ORDERED: fentaNYL 100 MCG/2 ML INJ ONE ×2 (08:44→09:25)
[2016-10-12] MEDS ORDERED: MIDAZOLAM 2 MG/2 ML VIAL ONE (08:45)
[2016-10-12] MEDS ORDERED: LIDOCAINE 1% 30 ML SDV ONE (09:53)
[2016-10-12] MEDS ORDERED: IOPAMIDOL (ISOVUE-300) 100 ML BTL IV ONE (09:53)
[2016-10-12] MEDS ORDERED: HEPARIN 10,000 UNIT/10 ML MDV IVP PRN (09:54)
[2016-10-12] MEDS: OMEGA-3 FATTY ACIDS 1,000 MG CAP PO SCH (10:05)
[2016-10-12 10:25] LABS: % IMMATURE GRANULYOCYTES 0.7 % (0.0-1.1); ABSOLUTE IMMATURE GRANULOCYTES 0.08 10^3/uL (0.00-0.10); ADD DIFF? NO; ADD MORPH? NO; ADD SCAN? NO; ATYPICAL LYMPHOCYTE FLAG 10 (0-99); FRAGMENT RBC FLAG 0 (0-99); HEMATOCRIT 33.8 % (38.0-47.0); HEMOGLOBIN 11.1 g/dL (12.6-16.3); LEFT SHIFT FLG 0 (0-99); LIPEMIA HEMOLYSIS FLAG 80 (0-99); MEAN CELL HEMOGLOBIN 28.8 pg (27.9-34.1); MEAN CELL HEMOGLOBIN CONCENTR. 32.8 g/dL (32.4-36.7); MEAN CELL VOLUME 87.8 fL (81.5-99.8); MEAN PLATELET VOLUME 10.1 fL (8.7-11.7); PLATELET CLUMPS FLAG 0 (0-99); PLATELET COUNT 76 10^3/uL (150-400); RED BLOOD CELL COUNT 3.85 10^6/uL (4.18-5.33); RED CELL DISTRIBUTION WIDTH 14.1 % (11.5-15.2)
[2016-10-12 10:33] LABS: APTT 37.6 SEC (23.0-38.0); INR 1.45 (0.83-1.16); PROTIME(PATIENT) 17.6 SEC (12.0-15.0)
[2016-10-12] MEDS ORDERED: HEPARIN/DEXTROSE 500 ML IV SCH (12:00)
[2016-10-12] MEDS ORDERED: POTASSIUM CL 20 MEQ TAB ONE (12:09)
[2016-10-12] MEDS: DABIGATRAN ETEXILATE MESYL 150 MG CAP PO SCH ×2 (12:10→19:57)
--- NOTE | 2016-10-12 13:35 | PDINTPN ---
Emt I/85 Progress Note Assessment/Plan: Assessment: #DVT, second episode. 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 Elevation of the leg will help some, and eventually she may need compression stockings. 10/12/16 13:35 Subjective: Some left leg pain Objective: Vital Signs Temp Pulse Resp BP Pulse Ox 36.3 C 98 22 H 153/60 H 98 10/12/16 12:00 10/12/16 12:36 10/12/16 12:36 10/12/16 12:36 10/12/16 12:36 Laboratory Results 10/12/16 10:00 10/12/16 04:30 10/11/16 10/12/16 10/13/16 05:59 05:59 05:59 Intake Total 1901.3 4054 Output Total 625 1400 Balance 1276.3 2654 PT 17.6 SEC (12.0-15.0) H 10/12/16 10:00 INR 1.45 (0.83-1.16) H 10/12/16 10:00 Physical Exam - Physical Exam General Appearance: alert, mild distress EENT: normal ENT inspection Neck: non-tender Respiratory: chest non-tender, lungs clear Cardiac/Chest: regular rate, rhythm Abdomen: normal bowel sounds, soft Back: Normal inspection Skin: warm/dry Lymphatic: no adenopathy Extremities: non-tender, pedal edema (significant edema of the entire LLE) Neuro/Psych: alert, oriented x 3 ICD10 Worksheet Patient Problems: Problems Problem Status Diagnosed DVT (deep venous thrombosis) Acute
--- NOTE | 2016-10-12 16:14 | IR ---
Lysis Follow Up Venography Angioplasty of the Common Femoral and External Iliac Veins Stent of the External Iliac Vein Indication: Post additional 8 hours of TPA lysis. TPA and heparin were stopped at 8 p.m. last night because of low fibrinogen level. Informed Consent: Obtained from the patient. Risks and benefits were discussed. Cross Cutting Measure: Patient's current list of medications including all known prescriptions, over -the-counter medications, herbals, and vitamin/mineral/dietary supplements are reviewed. Medications ' name, dosage, frequency, and route of administration are confirmed. Patient is a non-smoker. Prophylactic Antibiotic: Cefazolin was not ordered and administered for antimicrobial prophylaxis be cause it was not medically necessary. VTE Prophylaxis: There is not an order for VTE prophylaxis to be given within 24 hours of the proced ure end time. VTE prophylaxis was not given because it was not medically necessary. Technique: Patient is placed in prone position. A "timeout" procedure was performed to identify the correct patient and the correct procedure. 1% Xylocaine was used for local anesthetic. All elemen ts of maximal sterile barrier technique including cap, mask, sterile gown, sterile gloves, large ster ile sheet, hand hygiene, and 2% chlorhexidine for cutaneous antisepsis, followed. Again, infusion catheter is removed over exchange length Amplatz wire. Venography is performed throug h the sidearm of the sheath, this time showing a widely patent SFV and common femoral vein. The short sheath is exchanged for a long, 70 cm 8-Mozambican sheath, positioned into the common femoral v ein. Outflow venography was performed, showing patent stent, and essentially 95% clot free lysis. There is continued irregularity and narrowing of the external iliac vein segment. Angioplasty is firs t performed using 10 mm x 40 mm balloon. There is some resolution of the stenosis at the external nelson ac segment postangioplasty. However, below this stent of the common iliac vein, there continues to be an area of irregularity that may be prone to restenosis. A 6 cm long x 12 mm diameter self-expanding Life stent was loaded, and deployed distally above the in guinal ligament. This left a small gap between the common iliac stent and the external iliac stent. T his gap is bridged by a 14 mm diameter x 40 mm length stent. Post stent placement tack down angioplasty was performed, using a 14 mm balloon. Final post angioplas ty venogram shows rapid antegrade runoff, reflux of flow into the contralateral iliac vein, and rapid clearance of any injected contrast. Medication: 1 mg Versed, 100 mcg fentanyl, 0906 to 0935. Fluoroscopy: 5.6 minutes, 14 images. Impressions 1. Complete clot lysis. 2. Extension of stent, with stents now in the common iliac and external iliac veins. 3. Widely patent common femoral and superficial femoral veins. 4. Still slow inflow because the calf vessels are still occluded. Recommendations 1. Aggressive systemic anticoagulation. This is most important in the next several days to prevent re thrombosis. 2. Consider lifelong anticoagulation because of patient's hypercoagulable state, despite repair of un derlying anatomic source. 3. As soon as bleeding risk is eliminated within the next several hours, ambulation is highly recomme nded to start the rerouting process in the calf. 4. Application of medical grade compression stocking at least knee height is also highly recommended. The above are discussed with the patient and her , who expressed understanding of the informat ion discussed. I am overall very pleased with the normal appearance of the reconstructed veins and of the overall lysis, considering that we had no flow whatsoever to speak off at the start of the case.
[2016-10-12] MEDS: PANTOPRAZOLE SODIUM 40 MG TAB PO SCH (19:57)
[2016-10-12] MEDS: CHOLECALCIFEROL VIT D3 2,000 UNITS TAB/CAP PO SCH (19:57)
[2016-10-12] MEDS: VITAMIN E 200 UNIT PO SCH (19:58)
[2016-10-12] MEDS: LORazepam 1 MG TAB PO PRN (22:56)
[2016-10-13 02:11] LABS: HEMATOCRIT 30.9 % (38.0-47.0); HEMOGLOBIN 10.3 g/dL (12.6-16.3); MEAN CELL HEMOGLOBIN 28.8 pg (27.9-34.1); MEAN CELL HEMOGLOBIN CONCENTR. 33.3 g/dL (32.4-36.7); MEAN CELL VOLUME 86.3 fL (81.5-99.8); RED BLOOD CELL COUNT 3.58 10^6/uL (4.18-5.33); RED CELL DISTRIBUTION WIDTH 13.8 % (11.5-15.2)
[2016-10-13 02:28] LABS: ANION GAP 7 mEq/L (8-16); CALCIUM 7.4 mg/dL (8.5-10.4); CARBON DIOXIDE 23 mEq/l (22-31); CHLORIDE 107 mEq/L (97-110); CREATININE 0.6 mg/dL (0.6-1.0); GLOMERULAR FILTRATION RATE > 60; GLUCOSE 107 mg/dL (70-100); POTASSIUM 2.9 mEq/L (3.5-5.2); SODIUM 137 mEq/L (134-144)
[2016-10-13] MEDS ORDERED: hydrALAZINE 20 MG/ML VIAL IVP PRN ×2 (02:44→02:47)
[2016-10-13] MEDS ORDERED: hydrALAZINE 20 MG/ML VIAL ONE (02:52)
[2016-10-13] MEDS: LEVOTHYROXINE 88 MCG TAB PO SCH (05:21)
[2016-10-13] MEDS: oxyCODONE IR 5 MG TAB PO PRN ×2 (05:21→22:46)
[2016-10-13] MEDS ORDERED: POTASSIUM CL 20 MEQ TAB ONE (07:06)
[2016-10-13] MEDS ORDERED: PROTOCOL POTASSIUM 1 DOSE MISC PRN (08:48)
[2016-10-13] MEDS: ACETAMINOPHEN 325 MG TAB PO PRN (11:06)
[2016-10-13] MEDS: OMEGA-3 FATTY ACIDS 1,000 MG CAP PO SCH (11:07)
[2016-10-13] MEDS: DABIGATRAN ETEXILATE MESYL 150 MG CAP PO SCH ×2 (11:07→21:11)
[2016-10-13] MEDS ORDERED: ZOLPIDEM TARTRATE 5 MG TAB PO PRN (11:14)
[2016-10-13 12:44] LABS: COLOR YELLOW; LEUKOCYTE ESTERASE,URINE 3+ (NEGATIVE); NITRITE,URINE NEGATIVE (NEGATIVE)
[2016-10-13 12:58] LABS: BACTERIA 1+ /hpf (NONE SEEN); WBC,URINE 50-182 /hpf (0-3)
--- NOTE | 2016-10-13 14:56 | HOSPPROG ---
Hospitalist Progress Note Assessment/Plan: #Extensive LLE DVT -s/p t-pA and stent placement to common/external iliacs -family to discuss coumadin vs. newer agent -given underlying May-Thurner and prior clot, needs lifelong anticoagulation, Pradaxa BID -high risk for post-phlebitic syndrome: leg elevation and berny hose #Venous stasis dermatitis -no e/o acute cellulitis -elevate #Acute leg pain: controlled #Hypothyroidism -LT4 #Thrombocytopenia 76-->86. No e/o bleeding #Normocytic anemia -H/H stable. CBC in morning #Diet: regular #DVT px: Pradaxa #Disp: warrants inpt admission with large clot burden, Pradaxa, PT. Transfer to med surg Subjective: headache this morning. pain 12/21 Objective: Vital Signs Temp Pulse Resp BP Pulse Ox 36.6 C 93 18 146/75 H 91 L 10/13/16 13:33 10/13/16 13:33 10/13/16 13:33 10/13/16 13:33 10/13/16 13:33 Laboratory Results 10/13/16 02:00 10/13/16 02:00 10/12/16 10/13/16 10/14/16 05:59 05:59 05:59 Intake Total 4054 750 740 Output Total 1400 2560 450 Balance 2654 -1810 290 PT 17.6 SEC (12.0-15.0) H 10/12/16 10:00 INR 1.45 (0.83-1.16) H 10/12/16 10:00 - Physical Exam Constitutional: obese Eyes: PERRL Ears, Nose, Mouth, Throat: moist mucous membranes, hearing normal Cardiovascular: regular rate and rhythym, no murmur, rub, or gallop, tachycardia Respiratory: no respiratory distress, no rales or rhonchi Gastrointestinal: normoactive bowel sounds, soft, non-tender abdomen Genitourinary: no bladder fullness Skin: warm Musculoskeletal: other (left leg with significant swelling, less tense) Neurologic: AAOx3, CN II-XII Intact Psychiatric: interacting appropriately ICD10 Worksheet Patient Problems: Problems Problem Status Diagnosed DVT (deep venous thrombosis) Acute
[2016-10-13 18:49] LABS: POTASSIUM 3.2 mEq/L (3.5-5.2)
[2016-10-13] MEDS ORDERED: POTASSIUM CL 10 MEQ TAB PO ONE (19:23)
[2016-10-13] MEDS: PANTOPRAZOLE SODIUM 40 MG TAB PO SCH (21:11)
[2016-10-13] MEDS: CHOLECALCIFEROL VIT D3 2,000 UNITS TAB/CAP PO SCH (21:11)
[2016-10-13] MEDS: VITAMIN E 200 UNIT PO SCH (21:44)
[2016-10-14 04:51] LABS: HEMATOCRIT 32.3 % (38.0-47.0); HEMOGLOBIN 10.9 g/dL (12.6-16.3); MEAN CELL HEMOGLOBIN CONCENTR. 33.7 g/dL (32.4-36.7); MEAN CELL VOLUME 85.9 fL (81.5-99.8); RED BLOOD CELL COUNT 3.76 10^6/uL (4.18-5.33)
[2016-10-14 05:32] LABS: POTASSIUM 3.5 mEq/L (3.5-5.2)
[2016-10-14] MEDS: LEVOTHYROXINE 88 MCG TAB PO SCH (06:23)
[2016-10-14] MEDS ORDERED: POTASSIUM CL 10 MEQ TAB PO ONE ×2 (07:44→20:26)
[2016-10-14] MEDS: OMEGA-3 FATTY ACIDS 1,000 MG CAP PO SCH (09:27)
[2016-10-14] MEDS: DABIGATRAN ETEXILATE MESYL 150 MG CAP PO SCH (09:27)
[2016-10-14] MEDS: ACETAMINOPHEN 325 MG TAB PO PRN (09:39)
[2016-10-14] MEDS: oxyCODONE IR 5 MG TAB PO PRN (09:40)
[2016-10-14] MEDS ORDERED: NITROFURANTOIN MACROBID 100 MG CAP PO SCH (10:00)
[2016-10-14] MEDS ORDERED: IOPAMIDOL (ISOVUE 370) 100 ML BTL IV ONE (12:06)
--- NOTE | 2016-10-14 13:41 | CT ---
Contrast-Enhanced CT Scan of the Chest (CT Pulmonary Artery Angiography) Clinical History: 61-year-old female inpatient with a history of a deep venous thrombosis, and exter nal iliac stent placement and IR-mediated clot lysis, now complaining of shortness of breath. Rule ou t PE. Technique: A timing bolus was used. The patient received 90 mL of IV Isovue-370 without complication, and a multidetector helical CT scan was obtained from the base the neck inferiorly to the upper abdo men, with images reformatted at 1.50 and 4/3-mm increments, and reviewed at a variety of window and l evel settings. Multiplanar reconstructions were reviewed on the workstation. The DFOV is 36.8 cm. Dos e reduction protocol was used. Comparison Study: CT HeartScan, dated September 05, 2007. Findings: CT Angiography: There is a hypodense filling defect seen within the superior lingular and the superi or segment left lower lobe pulmonary artery branches (please reference series 5, images 95 through 11 2). The main pulmonary arteries and the main right and main left pulmonary arteries are contrast-opac ified, and normal in size. There is no saddle embolus. There is no interventricular septal bowing, no r is there any reflux into the intrahepatic IVC. The heart size is normal. The thoracic aortic contou r is normal. There is no pericardial effusion. There is a normal anatomic arrangement of the great ve ssels off of the aortic arch. The descending thoracic aorta and the upper abdominal aorta appear norm al. Contrast-Enhanced CT Scan of the chest: Moderate right and small left pleural effusions are seen wit h areas of bilateral lower lobe compressive subsegmental atelectasis versus minimal infiltrates. Ther e is some mild peribronchial thickening and there may also be some pulmonary venous congestion (query fluid overload). There is no adenopathy. The thyroid gland is diminutive. There is mild mediastinal lipomatosis. There is some subtle areas of opacification of the gallbladder, on series 7, image 100, and sonography could be considered for further evaluation, as clinically directed. Moderate centripe stas and subcutaneous obesity are present. The osseous structures are age-appropriate, and no aggressi ve lesion is observed. Impression: 1. Pulmonary artery thromboemboli involving a portion of the superior lingular branch and also the moeller perior segment of the left lower lobe pulmonary artery branch. 2. Moderate right and small left pleural effusions with bibasilar compressive atelectasis and/or infi ltrates. The pulmonary vasculature may be congested, and the patient reportedly has been IV hydrated and may be fluid overloaded. 3. Sludge versus stones in the gallbladder. This could be further evaluated with sonography, as clini alex directed. Results were called to Dr. Georgie Loya. A test result has been communicated to a licensed care provider and documented in [employer], 1:21:09 PM , 10/14/2016, [employer] Message ID [id number].
--- NOTE | 2016-10-14 14:42 | HOSPPROG ---
Hospitalist Progress Note Assessment/Plan: * Massive LLE DVT due to February- s/p lytics/stent -leg still massively swollen, poor distal venous drainage * Acute PE -will change to SubQ lovenox while remains inpatient -can change to oral agent at discharge * Acute CHF with pulmonary edema -IV Lasix -check ECHO * UTI -IV ceftriaxone pending culture * Factor V Leiden heterozygote Subjective: SOB, very swollen, urinary frequency in bathroom every few minutes Objective: Vital Signs Temp Pulse Resp BP Pulse Ox 36.8 C 88 18 146/79 H 94 10/14/16 12:00 10/14/16 12:00 10/14/16 12:00 10/14/16 12:00 10/14/16 12:00 Laboratory Results 10/14/16 04:44 10/14/16 04:44 10/13/16 10/14/16 10/15/16 05:59 05:59 05:59 Intake Total 750 2230 Output Total 2560 1050 Balance -1810 1180 PT 17.6 SEC (12.0-15.0) H 10/12/16 10:00 INR 1.45 (0.83-1.16) H 10/12/16 10:00 CTA chest: Moderate volume PE, + pulm edema CT reviewed personally with Dr. Simon - Physical Exam Constitutional: no apparent distress, appears nourished, not in pain Cardiovascular: regular rate and rhythym, no murmur, rub, or gallop, edema (4+) Respiratory: no respiratory distress, no rales or rhonchi, clear to auscultation Gastrointestinal: normoactive bowel sounds, soft, non-tender abdomen, no palpable masses Skin: induration, other (cyanotic lower leg, massive left leg edema), No normal color Neurologic: AAOx3, sensation intact bilaterally Psychiatric: interacting appropriately, not anxious, not encephalopathic, thought process linear ICD10 Worksheet Patient Problems: Problems Problem Status Diagnosed DVT (deep venous thrombosis) Acute
[2016-10-14] MEDS ORDERED: FUROSEMIDE 40 MG/4 ML VIAL IVP ONE (15:00)
[2016-10-14] MEDS: FUROSEMIDE 40 MG/4 ML VIAL IVP SCH (18:17)
[2016-10-14 18:50] LABS: POTASSIUM 3.8 mEq/L (3.5-5.2)
[2016-10-14] MEDS: PANTOPRAZOLE SODIUM 40 MG TAB PO SCH (20:21)
[2016-10-14] MEDS: ENOXAPARIN 100 MG/ML SYR SC SCH (20:22)
[2016-10-14] MEDS: CHOLECALCIFEROL VIT D3 2,000 UNITS TAB/CAP PO SCH (20:22)
[2016-10-14] MEDS: VITAMIN E 200 UNIT PO SCH (20:23)
[2016-10-15] MEDS: LEVOTHYROXINE 88 MCG TAB PO SCH (05:01)
[2016-10-15 05:31] LABS: % IMMATURE GRANULYOCYTES 2.3 % (0.0-1.1); ABSOLUTE IMMATURE GRANULOCYTES 0.24 10^3/uL (0.00-0.10); ADD DIFF? NO; ADD MORPH? NO; ADD SCAN? NO; ATYPICAL LYMPHOCYTE FLAG 10 (0-99); FRAGMENT RBC FLAG 0 (0-99); HEMOGLOBIN 10.5 g/dL (12.6-16.3); LEFT SHIFT FLG 10 (0-99); LIPEMIA HEMOLYSIS FLAG 90 (0-99); MEAN CELL HEMOGLOBIN 28.8 pg (27.9-34.1); MEAN CELL HEMOGLOBIN CONCENTR. 33.9 g/dL (32.4-36.7); MEAN CELL VOLUME 84.9 fL (81.5-99.8); MEAN PLATELET VOLUME 9.9 fL (8.7-11.7); PLATELET CLUMPS FLAG 10 (0-99); PLATELET COUNT 177 10^3/uL (150-400); RED BLOOD CELL COUNT 3.65 10^6/uL (4.18-5.33); RED CELL DISTRIBUTION WIDTH 14.3 % (11.5-15.2)
[2016-10-15 05:49] LABS: ANION GAP 8 mEq/L (8-16); CALCIUM 8.1 mg/dL (8.5-10.4); CARBON DIOXIDE 26 mEq/l (22-31); CHLORIDE 105 mEq/L (97-110); CREATININE 0.7 mg/dL (0.6-1.0); GLOMERULAR FILTRATION RATE > 60; GLUCOSE 99 mg/dL (70-100); POTASSIUM 3.6 mEq/L (3.5-5.2); SODIUM 139 mEq/L (134-144)
[2016-10-15] MEDS: ACETAMINOPHEN 325 MG TAB PO PRN ×2 (06:19→16:12)
[2016-10-15] MEDS: FUROSEMIDE 40 MG/4 ML VIAL IVP SCH ×2 (08:16→14:22)
[2016-10-15] MEDS: ENOXAPARIN 100 MG/ML SYR SC SCH ×2 (08:16→20:19)
[2016-10-15] MEDS: OMEGA-3 FATTY ACIDS 1,000 MG CAP PO SCH (08:16)
--- NOTE | 2016-10-15 09:59 | ECHO ---
[id number] + + [address] : : [place] [address] : : [phone] + + Adult Echocardiographic Report + + :Name: DEONTETERESHEAYAHAIRA Roach Date: 10/15/2016 07:56 AM : : Hospital Admission Number: [id number] Loc ation: 390: :: 1955 Gender: Female Height: 65 in : :Age: 61 yrs Race: WH Weight: 225 lb : :Reason For Study: CHF : : BSA: 2.1 me ters2 : + + MMode/2D Measurements & Calculations IVSd: 1.0 cm LVIDd: 5.2 cm FS: 46.9 % Ao root diam: LVPWd: 0.75 cm LVIDs: 2.8 cm EDV(Teich): 3.0 cm 129.8 ml LA dimension: ESV(Teich): 4.1 cm 28.7 ml EF(Teich): 77.9 % LVLd ap4: 6.8 cm SV(MOD-sp4): EDV(MOD-sp4): 42.0 ml 56.0 ml LVLs ap4: 5.5 cm ESV(MOD-sp4): 14.0 ml EF(MOD-sp4): 75.0 % Normal Measurement Values: + + :LVIDd (3.5-5.7cm) IVSd (0.6-1.1cm) LVPWd (0.6-1.1cm) Aortic Root (2.0-3.7cm)Left Atrium (1.5-4.0cm): :LV Vol(d) (76-115ml) LV Vol(s) (29-48ml) Ejec Fraction (50-65%)PV Danis (0.6- 1.2m/s) TV Danis (0.4-1.0m/s) : :MV E Danis (0.8-1.0m/s)MV A Danis (0.3-1.0m/s)LVOT Danis (0.7-1.2m/s) Asc Ao Danis ( 0.9-1.8m/s) : + + Doppler Measurements & Calculations MV E max danis: 111.6 cm/sec Ao V2 max: 157.5 cm/sec MV A max danis: 88.8 cm/sec Ao max P.9 mmHg MV E/A: 1.3 Left Ventricle The left ventricle is normal in size and function. There is normal left ventricular wall thickness. The left ventricle is hyperdynamic. Ejection Fraction = 70-75%. There is Doppler evidence for diastolic dysfunction. No regional wall motion abnormalities noted. Right Ventricle The right ventricle is normal in size and function. Atria The left atrial size is normal. Right atrial size is normal. The interatrial septum is intact with no evidence for an atrial septal defect. Mitral Valve The mitral valve is normal in structure and function. There is no evidence of mitral valve prolapse. There is no mitral valve stenosis. There is mild mitral regurgitation. Tricuspid Valve Normal tricuspid valve. There is trace tricuspid regurgitation. Aortic Valve The aortic valve opens well. There is no aortic stenosis. There is no aortic insufficiency. Pulmonic Valve The pulmonic valve is normal in structure and function. There is no pulmonic valvular regurgitation. Great Vessels The aortic root is normal size. Pericardium/Pleural There is no pericardial effusion. There is a fat pad seen. Conclusion A complete two-dimensional transthoracic echocardiogram was performed (2D, M-mode, Doppler and color flow Doppler). The left ventricle is normal in size and function. The left ventricle is hyperdynamic. Ejection Fraction = 70-75%. There is Doppler evidence for diastolic dysfunction. There is mild mitral regurgitation. There is trace tricuspid regurgitation. There is a fat pad seen. Final Reading Physician: Edwin Fox signed on 10/15/2016 09:57 AM Ordering Physician: Georgie Loya Performed By: Mary Anne Weiner RDCS
--- NOTE | 2016-10-15 16:31 | HOSPPROG ---
Hospitalist Progress Note Assessment/Plan: * Massive LLE DVT due to February-urn s/p lytics/stent -leg still massively swollen, poor distal venous drainage * Acute PE -will change to SubQ lovenox while remains inpatient -can change to oral agent at discharge * Acute CHF with pulmonary edema -IV Lasix -ECHO pending * UTI -IV ceftriaxone pending culture * Factor V Leiden heterozygote * Obesity BMI 37 Subjective: Leg edema a little better. Still SOB Objective: Vital Signs Temp Pulse Resp BP Pulse Ox 36.8 C 90 16 135/75 H 93 10/15/16 15:51 10/15/16 15:51 10/15/16 15:51 10/15/16 15:51 10/15/16 15:51 Laboratory Results 10/15/16 04:52 10/15/16 04:52 10/14/16 10/15/16 10/16/16 05:59 05:59 05:59 Intake Total 2230 750 600 Output Total 1050 2400 Balance 1180 750 -1800 PT 17.6 SEC (12.0-15.0) H 10/12/16 10:00 INR 1.45 (0.83-1.16) H 10/12/16 10:00 - Physical Exam Constitutional: no apparent distress, appears nourished, not in pain Cardiovascular: regular rate and rhythym, no murmur, rub, or gallop, edema (4+ tight edema in left leg) Respiratory: no respiratory distress, no rales or rhonchi, clear to auscultation Skin: other (left leg with better perfusion today, no longer purple) Musculoskeletal: full muscle strength, no muscle tenderness, normal joint ROM Neurologic: AAOx3, sensation intact bilaterally Psychiatric: interacting appropriately, not anxious, not encephalopathic, thought process linear ICD10 Worksheet Patient Problems: Problems Problem Status Diagnosed DVT (deep venous thrombosis) Acute
[2016-10-15] MEDS: CHOLECALCIFEROL VIT D3 2,000 UNITS TAB/CAP PO SCH (20:18)
[2016-10-15] MEDS: PANTOPRAZOLE SODIUM 40 MG TAB PO SCH (20:18)
[2016-10-15] MEDS: VITAMIN E 200 UNIT PO SCH (20:19)
[2016-10-15] MEDS: oxyCODONE IR 5 MG TAB PO PRN (22:36)
[2016-10-16 05:30] LABS: ADD DIFF? YES; ADD MORPH? NO; ADD SCAN? NO; ATYPICAL LYMPHOCYTE FLAG 20 (0-99); FRAGMENT RBC FLAG 0 (0-99); HEMATOCRIT 34.3 % (38.0-47.0); HEMOGLOBIN 11.3 g/dL (12.6-16.3); LEFT SHIFT FLG 20 (0-99); LIPEMIA HEMOLYSIS FLAG 80 (0-99); MEAN CELL HEMOGLOBIN 28.5 pg (27.9-34.1); MEAN CELL HEMOGLOBIN CONCENTR. 32.9 g/dL (32.4-36.7); MEAN CELL VOLUME 86.6 fL (81.5-99.8); MEAN PLATELET VOLUME 9.6 fL (8.7-11.7); PLATELET CLUMPS FLAG 10 (0-99); PLATELET COUNT 194 10^3/uL (150-400); RED BLOOD CELL COUNT 3.96 10^6/uL (4.18-5.33); RED CELL DISTRIBUTION WIDTH 14.1 % (11.5-15.2)
[2016-10-16 05:59] LABS: ANION GAP 12 mEq/L (8-16); CALCIUM 8.3 mg/dL (8.5-10.4); CARBON DIOXIDE 26 mEq/l (22-31); CHLORIDE 101 mEq/L (97-110); CREATININE 0.7 mg/dL (0.6-1.0); GLOMERULAR FILTRATION RATE > 60; GLUCOSE 111 mg/dL (70-100); POTASSIUM 3.6 mEq/L (3.5-5.2); SODIUM 139 mEq/L (134-144)
[2016-10-16] MEDS: LEVOTHYROXINE 88 MCG TAB PO SCH (06:15)
[2016-10-16 06:18] LABS: PLATELET ESTIMATE ADEQUATE (ADEQ); POLYCHROMASIA 1+
[2016-10-16 07:31] VITALS: BP 95/63; PULSE 86; RESP 16; TEMP 98.7; O2SAT 91
[2016-10-16] MEDS: ACETAMINOPHEN 325 MG TAB PO PRN (09:13)
[2016-10-16] MEDS: OMEGA-3 FATTY ACIDS 1,000 MG CAP PO SCH (09:14)
[2016-10-16] MEDS: ENOXAPARIN 100 MG/ML SYR SC SCH (09:14)
[2016-10-16] MEDS: FUROSEMIDE 40 MG/4 ML VIAL IVP SCH (09:14)
[2016-10-16] MEDS ORDERED: CYCLOBENZAPRINE 10 MG TAB PO ONE (09:52)
--- NOTE | 2016-10-16 15:52 | GDS ---
[f rep st] DISCHARGE SUMMARY DISCHARGE DIAGNOSES: 1. 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 2. Acute pulmonary embolus. 3. Acute diastolic congestive heart failure with pulmonary edema. 4. Bilateral pleural effusions. 5. Urinary tract infection. 6. Factor 5 Leiden heterozygote. 7. Obesity. Body mass index 37. HISTORY: Ena Johnson is a 61-year-old female, who has had a previous left leg DVT many years a go, for which she received 6 months of anticoagulation. She re-presented to the hospital with recurr ence of severe swelling in that same left leg. Ultrasound showed a massive DVT, and she went to IR f or lytic therapy. She was found to have May-Thurner syndrome, and underwent stent placement by Dr. Amari olson. Her leg was massively swollen with ongoing venous congestion and eventually that did improve and looks much better upon hospital discharge. She also had shortness of breath and CT angiogram showed moderate volume pulmonary embolus. She was treated with subcutaneous Lovenox in the hospital, but w e did transition her to an oral agent at hospital discharge. Lung imaging also showed pulmonary edema and bilateral pleural effusions. She was given IV Lasix, an d did have improvement. Echocardiogram was relatively unremarkable, and so she likely has an element of diastolic dysfunction, but probably more likely is just volume retention from fluid resuscitation that occurred with her initial ICU stay. She is near euvolemic at the time of hospital discharge. I will give her a couple more days of Lasix orally, but then I think it can just be discontinued as s he returns to her baseline state. She did get a Dawkins catheter while she was in ICU, and it was discontinued successfully. She subsequ ently developed severe dysuria and had a positive urinalysis. With IV ceftriaxone, these symptoms im proved and will complete a course of oral antibiotics upon hospital discharge. Her urine culture is complete and is actually more consistent with contamination rather than a classic UTI finding. Given her severe symptoms, however, I think finishing a course of antibiotics is warranted. DISCHARGE MEDICATIONS: Please see computer record for full detailed list. New medications: 1. Eliquis 10 mg p.o. b.i.d. for 7 days and then decrease to 5 mg p.o. b.i.d. thereafter. Given the fact that this is her 2nd DVT, she is a Factor 5 Leiden heterozygote, and this was a massive life-th reatening clot, lifelong anticoagulation has been recommended. 2. Lasix 20 mg p.o. daily for 5 more days and then stop. 3. Macrobid 100 mg p.o. b.i.d. for 5 days. ADDITIONAL DISCHARGE INSTRUCTIONS: Follow up with primary care. TIME SPENT: Greater than 30 minutes' time spent arranging this discharge. Patient seen and examined by me on day of discharge. /[id number]/MODL
== END 2016-10-16 16:24 | disposition home or self-care (01) | DRG 252 ==
LOC: F1N 18:58 → F2N 10-10 17:13 → F3E 10-13 12:07 → UNDODISIN 10-16 14:51
PROVIDERS: ADMIT Internal Medicine; ATTEND Internal Medicine
PROC: 067G3DZ Dilation of Left External Iliac Vein with Intraluminal Device, Percutaneous Approach (ICD-10-PCS; principal; 2016-10-12)
PROC: 067D3DZ Dilation of Left Common Iliac Vein with Intraluminal Device, Percutaneous Approach (ICD-10-PCS; principal; 2016-10-12)
DX: I82.422 Acute embolism and thrombosis of left iliac vein (principal); I26.99 Other pulmonary embolism without acute cor pulmonale; I50.31 Acute diastolic (congestive) heart failure; I87.1 Compression of vein; J90 Pleural effusion, not elsewhere classified; N39.0 Urinary tract infection, site not specified; D68.2 Hereditary deficiency of other clotting factors; E66.9 Obesity, unspecified; E78.5 Hyperlipidemia, unspecified; E03.9 Hypothyroidism, unspecified; Z86.718 Personal history of other venous thrombosis and embolism; Z68.37 Body mass index [BMI] 37.0-37.9, adult
CPT/HCPCS: 85520-90; 96374; 97001-GP; 97116-GP; 97530-GP; C1725; C1757; C1769; C1876; C1892; C1894; J0360; J0696; J1170; J1644; J1650; J2250; J2997; J3010; Q9967

== ENCOUNTER 2016-10-19 16:05 | Emergency (ER) | payer OTHER ==
[2016-10-19 16:11] VITALS: TEMP 98.2
--- NOTE | 2016-10-19 16:59 | EDPHY ---
HPI/HX/ROS/PE/MDM Narrative: Chief Complaint: Leg redness HPI: 61-year-old female recently discharged several days ago after prolonged admission for a extensive left leg DVT. Patient underwent interventional radiology treatment of clot evacuation, intravenous tPA and stenting. Patient was called by her primary care physician today in follow-up and she indicated that she had noted some increased redness in her inner left thigh, behind her knee, her left calf. Primary care doc sent her in for evaluation for possible cellulitis. Patient states she has since she was in the hospital she had an area of in redness on her left dent. She has now developed some redness in her popliteal area where she had interventions done. She also has some redness on the dorsum of her foot. And in the medial aspect of her right thigh. Has not had any fevers or chills. No increasing swelling. She has been taking medications. ROS: 10 point Review of Systems is negative except as noted in the HPI. Physical exam: Gen: Awake, Alert, No Distress HEENT: Nose: no rhinorrhea Eyes: PERRLA, EOMI Mouth: Moist mucosa Neck: Supple, no JVD Chest: nontender, lungs clear to auscultation Heart: S1, S2 normal, no murmur Abd: Soft, non-tender, no guarding Back: no CVA tenderness, no midline tenderness Ext: Significant left leg edema. She is area of erythema on her anterior dent which is warm to the touch. She also is a large area of erythema with under medial aspect of her left thigh. Small patchy the dorsal forefoot. And in her popliteal fossa. These are not warm to the touch. They are not tender. They have the appearance more ecchymoses opposed to cellulitis. These have developed over the course of the last couple of days. Skin: no rash Neuro: CN II-XII intact, Sensation grossly intact, Strength 5/5 in bilateral upper and lower extremities ED Course: Left leg ultrasound, interpreted by Dr. Foster: Noted old DVT. No evidence of extension as compared to when she was discharged from the hospital. Impression: This is a 61-year-old woman with ecchymotic changes in her left leg likely secondary to her Eliquis and her interventional Radiology therapies of her extensive DVT evacuation. She is afebrile. New areas of erythema which are unchanged are not warm to the touch. These are all consistent with her DVT. Given her concern I have given her a dose of IV vancomycin here. She does not want to stay in the hospital. She was willing to go home on oral antibiotics and is willing to return if there is any change. The areas of erythema been demarcated by skin marker. She will return for any concerns including fevers or chills, weakness, nausea or vomiting, increasing pain, increasing swelling, spreading of the redness, or any other concerns. I have otherwise instructed her to follow up with primary care physician. She has a appointment on Saturday. She assures me she will return sooner for any change in her condition. - Data Points Medications Given: Discontinued Medications Vancomycin/Sodium Chloride (Vancomycin 1 Gm (Premix)) 250 mls @ 250 mls/hr IV EDNOW ONE PRN Reason: Protocol Stop: 10/19/16 17:59 Last Admin: 10/19/16 18:15 Dose: 250 mls General Time Seen by Provider: 10/19/16 16:43 Initial Vital Signs: Initial Vital Signs Temperature (C) 36.8 C 10/19/16 16:06 Heart Rate 98 10/19/16 16:06 Respiratory Rate 16 10/19/16 16:06 Blood Pressure 108/66 10/19/16 16:06 O2 Sat (%) 94 10/19/16 16:06 O2 Delivery Mode Room Air Allergies/Adverse Reactions: erythromycin base [Erythromycin Base] Allergy (Unknown, Verified 08/16/10 11:07) DISORIENTED/DYSFUNCTIONAL Home Medications: Medication Instructions Recorded Cholecalciferol Vit D3 [Vitamin D3 2,000 units PO DAILY@10/09/16 (*)] Levothyroxine [Synthroid 88 mcg 88 mcg PO DAILY06 10/09/16 (*)] [place]-3 Fatty Acids [Fish Oil 1000 1,000 mg PO DAILY 10/09/16 mg (*)] Omeprazole [Prilosec 20 mg] 20 mg PO DAILY@10/09/16 Vitamin E 200 unit PO DAILY@10/09/16 Apixaban [Eliquis] 5 mg PO BID #75 tablet 10/16/16 Furosemide [Lasix 20 MG (*)] 20 mg PO DAILY #5 tab 10/16/16 Nitrofurantoin Monohyd/M-Cryst 100 mg PO BID #10 capsule 10/16/16 [Macrobid 100 mg Capsule] Cephalexin [Keflex (*)] 500 mg PO Q6H #28 cap 10/19/16 Sulfamethox/Tmp 800/160 mg 1 tab PO BID #14 tab 10/19/16 [Bactrim Ds] Departure - Departure Disposition: Home, Routine, Self-Care Clinical Impression: Pain of lower extremity, DVT (deep venous thrombosis) Condition: Good Instructions: Deep Venous Thrombosis (ED), Leg Edema (ED) Additional Instructions: Return to the emergency department immediately for spreading of the redness, fevers, chills, increasing pain, increasing swelling, weakness, or any other concerns. Continue to take a full course of antibiotics as prescribed. Follow up with her primary care physician as scheduled early next week. Referrals: Dalila Contreras MD [Primary Care Provider] - As per Instructions Prescriptions: Sulfamethox/Tmp 800/160 mg [Bactrim Ds] 1 tab PO BID #14 tab Cephalexin [Keflex (*)] 500 mg PO Q6H #28 cap
[2016-10-19] MEDS ORDERED: VANCOMYCIN HCL/NORMAL SALINE 250 ML IV ONE (17:00)
--- NOTE | 2016-10-19 18:20 | US ---
Venous Duplex Doppler Study of the Left Lower Extremity Clinical Indications: 61-year-old female with a history of May-Thurner syndrome who had angioplasty of the left external and left common femoral veins with stent deployment of the left common iliac vei n on October 11, 2016, and venous thrombolysis. The patient was noted to have pulmonary artery throm boemboli on October 14, 2016, and returns to the ED complaining of left leg pain, swelling, and erythe ma. Technique: A high-frequency transducer was used for imaging and Doppler study of the deep veins of t he leg from the upper calf to the groin. Pulsed Doppler and color Doppler were utilized, along with various maneuvers, to assess flow in the deep veins. Cursory evaluation of the right common femoral v ein was obtained for comparison purposes, and is normal. Comparison Studies: Left leg venous Doppler ultrasound, dated October 09, 2016 (which had demonstrat ed extensive DVT with involvement of the left distal external iliac vein through the calf, as well as superficial venous thrombosis of the greater saphenous vein from the left thigh to the knee). The abraham tolentino also had venous clot lysis from 10/10 through 10/12/16/ with patency of the common femoral and superficial femoral veins reestablished, but persistent occlusion of the calf vessels. Findings: The deep veins of the left groin, thigh, knee, and upper calf are well-displayed, and there is thrombosis involving the left popliteal vein (to the level of the adductor canal), and of the david red left posterior tibial and peroneal veins. Above the adductor canal, and patency of the superficia l femoral vein, common femoral vein, and proximal aspect of the profunda femoris vein. There is persi stent thrombosis involving the left greater saphenous vein from the thigh to the knee, with patency i n the calf, and also patency of the visualized left lesser saphenous vein. The popliteal fossa is unr emarkable. Results were called to Dr. Hipolito Polanco. A test result has been communicated to a licensed care provider and documented in [employer], 6:15:05 PM , 10/19/2016, [employer] Message ID [id number].
[2016-10-19 19:58] VITALS: BP 120/79; PULSE 91; RESP 16; O2SAT 92
== END 2016-10-19 19:57 | disposition home or self-care (01) ==
DX: I82.402 Acute embolism and thrombosis of unspecified deep veins of left lower extremity (principal); Z79.01 Long term (current) use of anticoagulants
CPT/HCPCS: 96365; J3370

== ENCOUNTER → 2016-12-12 | Outpatient (CLI) | payer OTHER | LOC: FIMAGING 08:08 | PROVIDERS: ATTEND Radiology Diagnostic Radiology | DX: I82.891 Chronic embolism and thrombosis of other specified veins (principal); Z86.718 Personal history of other venous thrombosis and embolism; Z95.820 Peripheral vascular angioplasty status with implants and grafts ==

== ENCOUNTER → 2017-08-05 | Outpatient (CLI) | payer OTHER | LOC: BMCIMAGING 07:31 | PROVIDERS: ATTEND Internal Medicine | DX: Z12.31 Encounter for screening mammogram for malignant neoplasm of breast (principal) | CPT/HCPCS: G0202 ==

== ENCOUNTER → 2018-04-04 | Outpatient (CLI) | payer OTHER ==
--- NOTE | 2018-04-07 10:26 | CPEEG ---
[f rep st] ELECTROENCEPHALOGRAM DATE OF STUDY: 04/04/2018 DATE OF INTERPRETATION: 04/07. INTERPRETATION: This EEG contains a mild degree of focal slowing over the left temporal head region. These findings would be consistent with a mild focal disturbance in cerebral function in these ivan ons. There were no potentially epileptogenic abnormalities present on the awake or asleep recordings . REPORT: This EEG contains 10 Hz alpha activity over the posterior head regions. There was a mild de gree of focal slowing over the left temporal head region composed of intermittent theta frequency and low-amplitude delta frequency activity. There was no abnormal activation at rest, during photic sti mulation or hyperventilation. The patient became drowsy and fell asleep during the study. There wer e no abnormalities during drowsiness, sleep, or during times of arousal. /[id number]/MODL
== END ==
LOC: FCPNEURO 07:40
PROVIDERS: ATTEND Psychiatry & Neurology Neurology
DX: H53.9 Unspecified visual disturbance (principal)

== ENCOUNTER 2018-04-13 09:53 | Emergency (ER) | payer OTHER ==
--- NOTE | 2018-04-13 10:57 | EDPHY ---
H & P Stated Complaint: rx macrobid for uti has developed rash and excrutiating [place] Time Seen by Provider: 04/13/18 10:02 HPI/ROS: CHIEF COMPLAINT: Headache, rash HISTORY OF PRESENT ILLNESS: This is a 63-year-old female with a history of factor 5 Leiden, May-Thurner syndrome, and left leg DVT on Eliquis. Five days ago she was started on Macrobid for symptoms of a urinary tract infection. Two days ago she noted a rash on her lower extremities and notes that it is now also on her upper extremities and her abdomen. The rash is pruritic. She discontinued the Macrobid after 4 days of treatment. In addition to this rash, she has had headache that began about 4 days ago. She cannot recall what she was doing at the time of its onset but believes that it came on fairly abruptly. The headache was initially global but yesterday localized to the left side of her head. The headache is intermittent and is "pounding"and"stabbing". It lasts for 2-3 seconds and comes on sometimes every few seconds, sometimes there will be a few minutes between pain. The headache is worse at night. While in the shower this morning she was headache free. She has been taking Tylenol for the pain with minimal relief. She has not had fever. She has not been aware of any scalp tenderness. No one else at home with headache. She has no history of frequent headaches. She denies any recent visual changes but has been undergoing an outpatient workup for changes in vision that she describes as "seeing tornadoes or spirals". She initially saw an degreasing solution mixer and was referred for an MRI of her head, which was done and was apparently normal with the exception of the finding of a begign meningioma. She has also seen a neurosurgeon and a neurologist. She has had an EEG that is reportedly normal. REVIEW OF SYSTEMS: A ten point review of systems was performed and is negative with the exception of the items mentioned in the HPI. Recent cough, no chest pain or shortness of breath. Past medical history: 1. Factor 5 Leiden 2. May-Thurner Syndrome 3. DVT left lower extremity 4. Hyperlipidemia 5. Hypothyroidism next 6. DVT left lower extremity Past surgical history: Radiofrequency venous ablation Social history: She lives with her . She has 3 grown children. She does not use tobacco products. She drinks alcohol rarely. 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 General Appearance: Alert. Vital signs reviewed. Head: Normocephalic. No temporal artery tenderness. Eyes: Pupils equal and round, no conjunctival injection, no discharge. Anicteric. ENT, Mouth: Mucous membranes are moist, no oropharyngeal erythema or edema. Neck: No lymphadenopathy, supple. No meningeal signs. Respiratory: Lungs are clear to auscultation; no wheezes, rales, or rhonchi. Cardiovascular: Regular rate and rhythm; no murmur, rub, or gallop. Gastrointestinal: Abdomen is soft and nontender, no masses or organomegaly, bowel sounds normal. Skin: Warm and dry, faint papular rash over the abdomen and both upper extremities. Venous stasis changes involving both lower extremities, markedly more pronounced on the left than the right. Petechial rash over both distal lower extremities. Back: Nontender to palpation over the thoracolumbar spine. No CVAT. Extremities: Mild left lower extremity edema, without calf tenderness. No calf tenderness. Neurological: Alert and oriented. Moving all four extremities easily and equally. Cranial nerves II through XII are examined and are intact (visual acuity not tested). Strength is 5 over 5 bilaterally with testing of all major motor groups. Sensation is intact to light touch over all 4 extremities. Deep tendon reflexes are 2+ in the biceps and absent in the knees bilaterally. [id number] is performed accurately. Psychiatric: Normal affect. - Personal History Current Tetanus Diphtheria and Acellular Pertussis (TDAP): Yes - Medical/Surgical History Hx Asthma: No Hx Chronic Respiratory Disease: No Hx Diabetes: No Hx Cardiac Disease: No Hx Renal Disease: No Hx Cirrhosis: No Hx Alcoholism: No Hx HIV/AIDS: No Hx Splenectomy or Spleen Trauma: No Other PMH: sleep apnea, GERD, DVT, PVD hysterectomy/ l knee surg/tonsilllectomy - Social History Smoking Status: Never smoked Constitutional: Initial Vital Signs Temperature (C) 36.7 C 04/13/18 09:57 Heart Rate 101 H 04/13/18 09:57 Respiratory Rate 18 04/13/18 09:57 Blood Pressure 157/92 H 04/13/18 09:57 O2 Sat (%) 94 04/13/18 09:57 O2 Delivery Mode Room Air Allergies/Adverse Reactions: erythromycin base [Erythromycin Base] Allergy (Unknown, Verified 04/13/18 09:56) DISORIENTED/DYSFUNCTIONAL nitrofurantoin [From Macrobid] Allergy (Verified 04/13/18 11:09) Home Medications: Medication Instructions Recorded Cholecalciferol Vit D3 [Vitamin D3 2,000 units PO DAILY@20 10/09/16 (*)] Levothyroxine [Synthroid 88 mcg 88 mcg PO DAILY06 10/09/16 (*)] [place]-3 Fatty Acids [Fish Oil 1000 1,000 mg PO DAILY 10/09/16 mg (*)] Omeprazole [Prilosec 20 mg] 20 mg PO DAILY@20 10/09/16 Vitamin E 200 unit PO DAILY@20 10/09/16 Apixaban [Eliquis] 5 mg PO BID #75 tablet 10/16/16 Nitrofurantoin Monohyd/M-Cryst 100 mg PO BID #10 capsule 10/16/16 [Macrobid 100 mg Capsule] Hydrocodone/APAP 5/325 [Glynn 1 - 2 tab PO Q4 PRN #10 tab 04/13/18 5/325 (RX)] Medical Decision Making ED Course/Re-evaluation: 63-year-old female with combination of symptoms--headache that is stabbing and intermittent along with skin rash. The skin rash developed after she began taking Macrobid. Skin rash involves all 4 extremities and her abdomen although her legs are more severely involved. Upon her arms an abdomen she has scattered papular rash. She has venous stasis changes on her left leg and a petechial rash on both legs. It is unclear whether the rash is related to her antibiotic. She is no longer having any urinary tract symptoms and I have recommended that she discontinue the Macrobid. She completed a 4 day course. Headache is somewhat unusual in nature--brief stabbing episodes of pain that last 2-3 seconds and occur at varying intervals. She is undergoing an outpatient workup for visual changes that are described as the occasional appearance of spirals or shapes such as squares or circles in her visual mccullough. Sometimes these have color and texture. She has seen an degreasing solution mixer, neurosurgeon, and a neurologist as part of this evaluation. She has had an MRI with and without contrast and an EEG. Neither of these have elucidated cause for her visual changes. She is not currently experiencing any visual problems at all. She does not have any temporal artery tenderness. No lacrimation or other symptoms that might suggest cluster headache. It is possible that these headaches are a migraine variant, however she has no history of headaches in the past. I do not have her MRIs but she tells me that they were normal aside from the finding of a benign meningioma the size of her fingernail. From her description it sounds as is is if the location is falcine. Her neurologic exam is normal. CT scan was obtained to assess for bleeding, as she is on Xarelto. It is negative for intracranial hemorrhage. I spoke with Dr. Cook who is covering for Dr. Alcaraz, neurology. She recommends CT angiogram and CT venogram. CTA and CTV were performed and were reported to me as negative by Dr. Conner Lester. I have no suspicion for bacterial meningitis, based upon her physical examination. She has no meningeal signs and has not had fever. On the face of with a combination of headache and rashes concerning but clinically she does not have the appearance of someone with bacterial meningitis. She has been taking Tylenol at home for headache. She is not certain how much she has taken over the last day and half but thinks that she has taken more than the recommended dose. Her last dose was around 8:00 a.m. This morning. I have checked a Tylenol level, 4 hr after her last dose, and it is less that 10. Have counseled her about the appropriate dosing of Tylenol. She is given a prescription for small quantity of Glynn and is aware that this also contains Tylenol. She will keep close track of her Tylenol doses. She understands that the etiology of her headache remains unclear. I have recommended close follow-up with her primary care physician and her neurologist , both of whom she will contact tomorrow. I have reviewed the danger signs that should prompt her to return to the emergency department. As above, she was given a prescription for small quantity of Glynn to use before bedtime, as her headache seems to be worse at night. The time of her discharge she is feeling better than when she arrived. She received a dose of Benadryl for pruritus related to her rash, no other medications were given. During her stay in the emergency department she has had some brief episodes of the stabbing head pain she was experiencing but they have been less frequent than earlier. Differential Diagnosis: Headache including but not limited to subarachnoid hemorrhage, migraine headache , temporal arteritis, cluster headache, tension headache and infectious causes such as meningitis, pharyngitis and sinusitis. - Data Points Laboratory Results: Laboratory Results 04/13/18 11:05 04/13/18 11:05 Medications Given: Discontinued Medications Diphenhydramine HCl (Benadryl) 25 mg PO EDNOW ONE Stop: 04/13/18 11:01 Last Admin: 04/13/18 11:16 Dose: 25 mg Departure - Departure Disposition: Home, Routine, Self-Care Clinical Impression: Skin rash Headache Qualifiers: Headache type: unspecified Headache chronicity pattern: acute headache Intractability: not intractable Qualified Code(s): R51 - Headache Condition: Good Instructions: Acute Headache (ED) Additional Instructions: As we discussed, it is not clear what is causing your headache. If you decide to take Tylenol I recommend that you take 650 mg at a time every 4 hr. Do not take more than 3000 mg of Tylenol in a 24 hr time period. I am prescribing Glynn for you to use for severe persistent headache--you might try this when you go to bed tonight. The Glynn contains hydrocodone 5 mg and Tylenol 325 mg. Be sure that you factor this Tylenol in 1 your calculating her overall daily dose of Tylenol. You need to follow up with Dr. Alcaraz of Neurology and with Dr. Contreras. Please call their offices tomorrow to arrange to be seen within the next 1-2 days. If you are worse in any way--fever, persistent severe headache, visual changes, confusion, new numbness, new weakness--any new or concerning symptoms, please return to the emergency department for re-evaluation. Discontinue the Macrobid. Referrals: Dalila Contreras MD [Primary Care Provider] - As per Instructions Stand Alone Forms: Work Excuse Prescriptions: Hydrocodone/APAP 5/325 [[place] 5/325 (RX)] 1 - 2 tab PO Q4 PRN #10 tab PRN Reason: pain
[2018-04-13] MEDS ORDERED: diphenhydrAMINE 25 MG CAP PO ONE (11:00)
[2018-04-13 11:16] LABS: PLATELET COUNT 199 10^3/uL (150-400)
[2018-04-13] MEDS ORDERED: IOPAMIDOL (ISOVUE 370) 100 ML BTL IV ONE (13:12)
[2018-04-13 15:05] VITALS: BP 115/72
== END 2018-04-13 15:10 | disposition home or self-care (01) ==
DX: R51 Headache (principal); R21 Rash and other nonspecific skin eruption
CPT/HCPCS: G0480; Q9967